=== PATIENT | female | born 1990 | race Caucasian/White ===

== ENCOUNTER 2017-04-17 09:35 | Emergency (ER) | payer OTHER ==
[~2017-04-17] VITALS: Ht 160 cm; Wt 68.3 kg
[~2017-04-17 09:35] MED LIST: CLONIDINE HCL0.1 MG PO; KEFLEX500 MG PO; LO LOESTRIN FE1 EACH PO; MOBIC7.5 MG PO; NOHOMEMEDS; PERCOCET 5/31 TABLET PO; TRAZODONE HCL50 MG PO
[2017-04-17 10:10] LABS: HEMATOCRIT 40.2 % (36.0-46.0); MCH 30.7 PG (29.0-34.0); MCHC 35.1 G/DL (30.0-36.0); MCV 87.6 FL (83-99); MEAN PLAT.VOLUME 11.4 uM^3 (9.5-12.4); PLATELET COUNT 253 K/uL (156-360); RBC DIS.WIDTH-CV 11.3 % (11.8-14.6); RED BLOOD COUNT 4.59 M/uL (3.80-5.20); WHITE BLOOD COUNT 8.2 K/uL (4.1-10.2)
[2017-04-17 10:27] LABS: ANION GAP 8 MEQ/L (2-14); CHLORIDE 105 mEq/L (99-109); GLUCOSE 102 mg/dL (70-99); POTASSIUM 3.8 mEq/L (3.7-5.4); SODIUM 138 mEq/L (136-147)
[2017-04-17 10:29] LABS: ALKALINE PHOSPHATASE 90 IU/L (3-129); GFR ESTIMATE (CALCULATED) > 59 mL/min/
[2017-04-17 10:32] LABS: TOTAL BILIRUBIN 0.3 mg/dL (0.0-1.0); UREA NITROGEN (BUN) 8 mg/dL (9-23)
[2017-04-17 10:34] LABS: TROP-I INTERPRETATION NEGATIVE; TROPONIN-I < 0.01 ng/mL (0.0-0.30)
[2017-04-17] MEDS ORDERED: BUPRENORPHINE HC8 MG SL (10:37)
[2017-04-17 10:39] LABS: QUANTITATIVE HCG 2285.5 MIU/ML
[2017-04-17 12:33] LABS: ADD MIUA? YES; BILIRUBIN NEGATIVE; BLOOD SMALL; COLOR YELLOW ((YELLOW)); GLUCOSE (STRIP) NEGATIVE; KETONES NEGATIVE; LEUKOCYTES TRACE; NITRITE NEGATIVE; PROTEIN (STRIP) NEGATIVE; SPECIFIC GRAVITY 1.018 (1.000-1.030)
[2017-04-17 12:44] LABS: BACTERIA NONE SEEN /HPF; EPITHELIAL CELLS RARE /HPF; MUCUS TRACE /LPF; RED BLOOD CELLS 0-5 /HPF (0-5); UCUL ADDED? NO; WHITE BLOOD CELLS 0-5 /HPF (0-5)
[2017-04-17 13:28] VITALS: BP 118/78
== END 2017-04-17 13:28 | disposition home or self-care (01) ==
LOC: EME 09:35
DX: O04.6 Delayed or excessive hemorrhage following (induced) termination of pregnancy (principal); Z87.440 Personal history of urinary (tract) infections; F17.210 Nicotine dependence, cigarettes, uncomplicated
CPT/HCPCS: 71020; 76856; 80053; 81003; 84484; 84702; 85027; 93005; 99281; 99284